=== PATIENT | male | born 1995 | race Caucasian/White ===

== ENCOUNTER 2021-12-15 09:34 | Emergency (ER) | payer SELFPAY ==
[2021-12-15 09:39] VITALS: BP 131/86; PULSE 85; RESP 14; TEMP 36.1; O2SAT 98; BMI 28.2
--- NOTE | 2021-12-15 10:25 | ED.GENADULT ---
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 He lifted something heavy a couple of days ago and has had pain in his right thoracic and lumbar region since then. It hurts with twisting and bending movements. He has difficulty laying down so sleeping has been difficult. He has tried ibuprofen and has been using a topical patch as well. He is having trouble with work because the bending and lifting motions are painful. Pain is moderate at times, right now it is not as bad, but if he does certain movements it is severe. He does not have any pain that radiates to the legs. It is aching and occasionally sharp. He has not had pain like this before. No urinary symptoms, vomiting, abdominal pain. Related Data Previous Rx's Medication Instructions Recorded cyclobenzaprine 10 mg tablet 10 mg PO TID PRN #14 tab 12/15/21 Allergies Allergy/AdvReac Type Severity Reaction Status Date / Time No Known Drug Allergies Allergy Verified 12/15/21 10:02 Review of Systems Status of ROS: Reports: 10 or more systems reviewed and unremarkable except as noted in History and below [facility] Social History Smoking Status: Former smoker How often do you have a drink containing alcohol: monthly or less AUDIT-C Alcohol total score: 1 Non-prescribed substance use: denies use Exam Narrative: Exam Narrative: Vital signs as noted above. In general, an alert, well-appearing patient. Head: Normocephalic, atraumatic. Eyes: Pupils are equal reactive. Extraocular movements are full. Conjunctivae are normal. ENT: Mucous membranes are moist. Throat is normal. Neck: Supple without lymphadenopathy. Heart: Regular rate and rhythm. No murmur or rub. Lungs: Clear bilaterally. No increased work of breathing, crackles or wheezes. Abdomen: Soft and nontender. No organomegaly. Back: Mild tenderness along the thoracic and lumbar musculature on the right. Extremities: Well perfused. No edema. No calf tenderness. Pulses intact. Neurologic: Patient is alert and oriented to person and place. Speech is fluent. Face is symmetric. Moves all extremities equally. Affect: Normal. Skin: Warm and dry. Well perfused. Const: Vital Signs, click to edit/add: Vital Signs - 24 hr 12/15/21 09:39 Temperature 96.9 F L Pulse Rate [Pulse Oximeter] 85 Respiratory Rate 14 Blood Pressure [Ri ght Upper Arm] 131/86 Pulse Oximetry 98 Course Course Hospital Course: Discussed that I think his pain is musculature. At this time I do not see anything to suggest radiculopathy, herniated disc, or red flags to suggest he needs imaging today. I do not think that this is renal in etiology, he has clear worsening with movement and muscle tenderness. His symptoms started with lifting a heavy load. I do think he would benefit from a little bit of time off of work and so I have given him a note. We discussed that I do not think his symptoms will be entirely resolved with just a couple of days off of work. We will give him a muscle relaxer, stressed that it is still important to take the anti-inflammatory even if he does not feel that it is helping with pain per se. If no improvement over the next 1-2 weeks would recommend clinic follow-up. Physical therapy may be of benefit if he is not improving with conservative measures. Vital Signs Vital signs: Initial Vital Signs Temperature 96.9 F L 12/15/21 09:39 Temperature Source Temporal Artery Scan 12/15/21 09:39 Pulse Rate 85 12/15/21 09:39 Pulse Rhythm 12/15/21 09:39 Respiratory Rate 14 12/15/21 09:39 Blood Pressure 131/86 12/15/21 09:39 Blood Pressure Mean 101 12/15/21 09:39 Blood Pressure Position Standing 12/15/21 09:39 Pulse Oximetry 98 12/15/21 09:39 Oxygen Delivery Method 12/15/21 09:39 Vital Signs Temperature 96.9 F L 12/15/21 09:39 Pulse Rate 85 12/15/21 09:39 Respiratory Rate 14 12/15/21 09:39 Blood Pressure 131/86 12/15/21 09:39 Pulse Oximetry 98 12/15/21 09:39 Temperature 96.9 F L 12/15/21 09:39 Pulse Rate 85 12/15/21 09:39 Respiratory Rate 14 12/15/21 09:39 Blood Pressure 131/86 12/15/21 09:39 Pulse Oximetry 98 12/15/21 09:39 Discharge Plan Discharge Clinical Impression: Back strain Patient Disposition: Home, Self-Care Condition: Stable Instructions: Back Pain (ED) Additional Instructions: Ibuprofen 400 mg 3 times daily with food for up to 1 week. Muscle relaxer as prescribed. Ice several times a day, 10-20 minutes. Off work x2 days. Follow up in clinic if not improving over the next 1-2 weeks, call [phone] to schedule if needed. human resources trainee is available to help with scheduling. Kiara ibuprofeno 400mg 3 veces al marj con comida, no mas de alex semana. Kiara el relajante muscular si necesita. Usa hielo en conner espalda varios veces al marj por 10-20 minutos al marj. Descansa de conner trabajo por 2 herring. Regrese a la clinica para evaluacion si no estas mejorando en 1-2 semanas. Puedes llamar [phone] para areglar la abram, si necesitas. Un interprete de espanol esta disponible cuando rose para programar la abram. Prescriptions: New cyclobenzaprine 10 mg tablet 10 mg PO TID PRN (Reason: muscle spasm) Qty: 14 0RF Stand Alone Forms: MyHealth Info Instructions
== END 2021-12-15 10:33 | disposition home or self-care (01) ==
LOC: ED 10:33
PROVIDERS: Emergency Provider Emergency Medicine
DX: S39.012A Strain of muscle, fascia and tendon of lower back, initial encounter (principal)
CPT/HCPCS: 99282; 99283; 99284